=== PATIENT | female | born 1950 | race Asian ===

== ENCOUNTER 2018-01-08 07:25 | Day surgery (SDC) | payer MEDICARE ==
[~2018-01-08] VITALS: Ht 162.6 cm; Wt 57.5 kg
[2018-01-08 08:15] VITALS: BP 143/85; PULSE 72; TEMP 97.6
[2018-01-08] MEDS ORDERED: PROAIR HFA0.09 MG/AC IH (08:15)
[2018-01-08 09:50] VITALS: BP 96/74; PULSE 81; TEMP 97.9
[2018-01-08 10:05] VITALS: BP 112/72; PULSE 77
[2018-01-08] MEDS ORDERED: LEVAQUIN 5500 MG/TA1 PO (10:18)
[2018-01-08 10:20] VITALS: BP 104/64; PULSE 71
[2018-01-08] MEDS ORDERED: PHENERGAN W/CO120 M1 PO (10:21)
[2018-01-08 10:35] VITALS: BP 113/73; PULSE 75
== END 2018-01-08 11:00 | disposition home or self-care (01) ==
LOC: SDCO 07:25
DX: C34.02 Malignant neoplasm of left main bronchus (principal); R91.8 Other nonspecific abnormal finding of lung field; J18.8 Other pneumonia, unspecified organism; J44.9 Chronic obstructive pulmonary disease, unspecified; J32.9 Chronic sinusitis, unspecified; F17.210 Nicotine dependence, cigarettes, uncomplicated
CPT/HCPCS: J2704; J7120; J7512

== ENCOUNTER → 2021-04-10 | Outpatient (CLI) | payer MEDICARE ==
[~2021-04-10] MED LIST: LEVAQUIN 5500 MG/TA1 PO; PHENERGAN W/CO120 M1 PO; PROAIR HFA0.09 MG/AC IH
== END ==
LOC: COL.RAD 10:05
DX: C34.12 Malignant neoplasm of upper lobe, left bronchus or lung (principal); J44.9 Chronic obstructive pulmonary disease, unspecified; Z72.0 Tobacco use; Z12.2 Encounter for screening for malignant neoplasm of respiratory organs
CPT/HCPCS: A9585